=== PATIENT | female | born 1980 | race Caucasian/White ===

== ENCOUNTER 2017-06-18 05:26 | Emergency (ER) | END 2017-06-18 06:48 | disposition home or self-care (01) ==

== ENCOUNTER 2017-06-18 06:50 | Outpatient (CLI) | END 2017-06-18 08:28 | disposition home or self-care (01) ==

== ENCOUNTER 2017-10-14 14:31 | Inpatient (IN) | END 2017-10-17 19:20 | disposition home or self-care (01) | DRG 775 ==